=== PATIENT | male | born 1965 | race Caucasian/White ===

== ENCOUNTER → 2016-05-21 | Outpatient (CLI) | payer BC ==
[~2016-05-21] MED LIST: ASCO10003 PO; CYAN100020 PO; DICY10CA12 PO; GLUCTAB7 PO; LOSA100T26 PO; MISCCAP80 PO; NAPR1TAB9 PO; OMEG10007 PO; PANT40TA PO; PRAV20TA PO; VANC5CAP PO; VITAMIN B12 PO
[2016-05-21 17:49] LABS: BASO % 0.3 %; BASO ABS # 0.02 K/uL (0-0.2); COMPLETE YES; EOS % 0.7 %; IG% 0.1 %; LYMPH % 29.1 %; MEAN CORPUSCULAR HEMOGLOBIN 32.2 pg (25-34); MEAN CORPUSCULAR HGB CONC 34.7 g/dl (32-36); MEAN PLATELET VOLUME 11.4 fL (7.4-10.4); MONO % 8.5 %; NEUT % 61.3 %; PLATELET COUNT 219 K/uL (130-400); RED BLOOD COUNT 4.84 M/uL (4.7-6.1); WHITE BLOOD COUNT 7.21 K/uL (4.8-10.8)
[2016-05-21 17:55] LABS: URINE APPEARANCE CLEAR (CLEAR); URINE BILIRUBIN NEG (NEG); URINE COLOR YELLOW; URINE EPITHELIAL CELL AUTO 0-5 /lpf (0-5); URINE NITRITE NEG (NEG); URINE PH 6.5 (4.5-7.5); URINE SPECIFIC GRAVITY 1.009 (1.000-1.030); UROBILINOGEN NEG (NEG); ZZUR CULT IF INDIC CLEAN CATCH NO
[2016-05-21 18:06] LABS: MANUAL MICROSCOPIC REQUIRED? NO; REVIEW REQ? NO
[2016-05-21 18:14] LABS: ALT/SGPT 30 U/L (12-78); AMYLASE 46 U/L (25-115); AST/SGOT 11 U/L (15-37); BLOOD UREA NITROGEN 21 mg/dl (7-18); BUN/CREATININE RATIO 19.4 (10-20); CALCIUM 9.9 mg/dl (8.5-10.1); CARBON DIOXIDE 33 mmol/L (21-32); CHLORIDE 102 mmol/L (98-107); GLUCOSE 99 mg/dl (70-99); POTASSIUM 4.1 mmol/L (3.5-5.1); SODIUM 140 mmol/L (136-145)
[2016-05-21 18:17] LABS: ALB/GLOB RATIO 1.4 (0.9-2); ALKALINE PHOSPHATASE 46 U/L (45-117); C-REACTIVE PROTEIN < 0.29 mg/dl (0-0.29)
== END | disposition home or self-care (01) ==
LOC: C.LAB1850 17:18
PROVIDERS: ATTEND Internal Medicine
DX: R10.32 Left lower quadrant pain (principal)

== ENCOUNTER → 2016-06-07 | Day surgery (SDC) | payer BC ==
[2016-06-06 14:09] VITALS: BMI 35.0
[~2016-06-07] VITALS: Ht 177.8 cm; Wt 111.4 kg
[~2016-06-07] MED LIST changes: +LIDOCAINE HCL 2% 2 ML VIAL (20MG/ML) ONE; +PROPOFOL IV EMULSION 10 MG/ML 20 ML VIAL IV ONE; +SODIUM CHLORIDE 0.9% 500ML 500 ML IV ONE; -VANC5CAP PO; -VITAMIN B12 PO
[2016-06-07 10:59] VITALS: Ht 177.8 cm; Wt 111.4 kg
[2016-06-07 11:06] VITALS: TEMP 37
--- NOTE | 2016-06-07 12:08 | Endo History and Physical ---
History & Physical Date of Service: Jun 07, 2016. Chief Complaint: abd pain, diarrhea Referring Physician: Dr. Krueger History of Present Illness 50 yo CM who presents for Colonoscopy secondary to abdominal pain and diarrhea. Past Medical History Reflux, High Cholesterol, Hypertension Past Surgical History Hx Cardiac Surgery: No Hx Internal Defibrillator: No Hx Pacemaker: No Hx Abdominal Surgery: No Hx of Implantable Prosthesis: No Hx Post-Op Nausea and Vomiting: No Hx Cancer Surgery: No Hx Thoracic Surgery: No Hx Orthopedic: No Hx Urinary Tract Surgery: No Family History None Social History Smoking Status: Former Smoker Hx Substance Use: No Hx Alcohol Use: Yes (2-3 BEER DAILY) Allergies Coded Allergies: Atorvastatin (Verified Adverse Reaction, Unknown, myalgia, 06/06/16) Azithromycin (Verified Adverse Reaction, Unknown, nausea, diarrhea, ) Lisinopril (Verified Adverse Reaction, Unknown, cough, 06/06/16) Current Medications Reported Home Medications Medications Dose Route/Sig Max Daily Dose Days Date Category Dose Instructions Aleve (Naproxen) 220 Mg Tab 220 Mg PO DIRECTED PRN 06/06/16 Reported Probiotic (Probiotic Product) 1 Cap Cap 1 Cap PO QPM 06/06/16 Reported Vitamin C (Ascorbic Acid) 1,000 Mg Tab 1 Tab PO QPM 06/06/16 Reported Vitamin B12 (Cyanocobalamin) 1,000 Mcg Tab 1 Tab PO QPM 06/06/16 Reported Dicyclomine Hcl 10 Mg Cap 1 Cap PO BID 30 06/06/16 Reported [place]-3 (Fish Oil) 1 Ea Cap 1 Cap PO QPM 05/19/15 Reported Glucosamine Chondroitin (Zbcatsprmvj-Owxghhhmzqf-Ugb C-) 1 Tab Tab 1,500 Mg PO QPM 05/19/15 Reported Pravachol (Pravastatin Sodium) 20 Mg Tab 20 Mg PO QPM 05/19/15 Reported Protonix (Pantoprazole) 40 Mg Tab 40 Mg PO BID 05/19/15 Reported Losartan Potassium/Hydroc (Losartan Potassium & Hydrochlo) 1 Tab Tab 1 Tab PO QAM 30 05/19/15 Reported 100/25MG STRENGHT Vital Signs Weight (Kilograms): 111.36 Height (Feet): 5 Height (Inches): 10 Date Time Temp Pulse Resp B/P Pulse Ox O2 Delivery O2 Flow Rate FiO2 06/07/16 11:06 37 100 20 166/92 98 Room Air Physical Exam General Appearance: WD/WN, no apparent distress Respiratory/Chest: Auscultation: breath sounds normal Cardiovascular: Heart Auscultation: RRR Abdomen: Bowel Sounds: normal Inspection & Palpation: soft, non-distended, no tenderness, guarding & rebound Assessment and Plan Assessment: 50 yo CM who presents for Colonoscopy secondary to abdominal pain and diarrhea. Plan: Proceed with colonoscopy.
--- NOTE | 2016-06-07 12:52 | GI REPORT ---
Procedure Date: 06/07/2016 11:52 AM Procedure: Colonoscopy Indications: Generalized abdominal pain Medicines: Monitored Anesthesia Care Complications: No immediate complications. Estimated Blood Loss: Estimated blood loss: none. Procedure: Pre-Anesthesia Assessment: - Prior to the procedure, a History and Physical was performed, and patient medications and allergies were reviewed. The patient's tolerance of previous anesthesia was also reviewed. The risks and benefits of the procedure and the sedation options and risks were discussed with the patient. All questions were answered, and informed consent was obtained. Prior Anticoagulants: The patient has taken no previous anticoagulant or antiplatelet agents. ASA Grade Assessment: II - A patient with mild systemic disease. After reviewing the risks and benefits, the patient was deemed in satisfactory condition to undergo the procedure. After I obtained informed consent, the scope was passed under direct vision. Throughout the procedure, the patient's blood pressure, pulse, and oxygen saturations were monitored continuously. The On-site loaner was introduced through the anus and advanced to the terminal ileum. The colonoscopy was performed without difficulty. The patient tolerated the procedure well. The quality of the bowel preparation was good. The ileocecal valve, appendiceal orifice, and rectum were photographed. Findings: The terminal ileum contained a single (solitary) four mm ulcer. No bleeding was present. Biopsies were taken with a cold forceps for histology. Multiple random biopsies were obtained with cold forceps for histology in the entire colon. Non-bleeding internal hemorrhoids were found during retroflexion. The hemorrhoids were small. Impression: - A single (solitary) ulcer in the terminal ileum. Biopsied. - Non-bleeding internal hemorrhoids. - Multiple random biopsies were obtained in the entire colon. Recommendation: - Resume previous diet. - Continue present medications. - Repeat colonoscopy for surveillance based on pathology results. - Return to primary care physician as previously scheduled. Gagan Lemus DO 06/07/2016 12:51:32 PM This report has been signed electronically. Note Initiated On: 06/07/2016 11:52 AM I attest to the content of the Intraoperative Record and orders documented therein, exceptions below
--- NOTE | 2016-06-07 13:11 | Anesthesiology Progress Note ---
Anesthesia Post Op Note Date & Time Jun 07, 2016 at 13:12 Vital Signs Pain Intensity: 4 Vital Signs Past 12 Hours Date Time Temp Pulse Resp B/P Pulse Ox O2 Delivery O2 Flow Rate FiO2 06/07/16 13:04 78 18 142/83 97 Room Air 06/07/16 12:49 85 16 118/65 96 Room Air 06/07/16 11:06 37 100 20 166/92 98 Room Air Notes Mental Status: alert / awake / arousable, participated in evaluation Pt Amnestic to Procedure: Yes Nausea / Vomiting: adequately controlled Pain: adequately controlled Airway Patency, RR, SpO2: stable & adequate BP & HR: stable & adequate Hydration State: stable & adequate Anesthetic Complications: no major complications apparent
[2016-06-07 13:19] VITALS: BP 144/90; PULSE 63; O2SAT 97
--- NOTE | 2016-06-07 13:26 | Discharge Instructions ---
Endoscopy Patient Instructions Date / Procedure(s) Performed Jun 07, 2016. Colonoscopy Allergy Information Coded Allergies: Atorvastatin (Verified Adverse Reaction, Unknown, myalgia, 06/06/16) Azithromycin (Verified Adverse Reaction, Unknown, nausea, diarrhea, ) Lisinopril (Verified Adverse Reaction, Unknown, cough, 06/06/16) Discharge Date / Findings Jun 07, 2016. Terminal ileum ulcer s/p biopsies Random colon biopsies Internal hemorrhoids Provider Instructions Activity Restrictions - No exercising or heavy lifting for 24 hours. - Do not drink alcohol the day of the procedure. - Do not drive a car or operate machinery until the day after the procedure. - Do not make any important decisions or sign important papers in 24 hours after the procedure. Following Day: - Return to full activity which may include returning to work/school. Diet Start your diet with liquids and light foods (jello, soup, juice, toast). Then eat your usual diet if not nauseated. Treatment For Common After Affects For mild abdominal pain, bloating, or excessive gas: - Rest - Eat lightly - Lie on right side Follow-Up Information Follow-up with Dr. Krueger as scheduled Anesthesia Information What You Should Know You have had a procedure that required some medicine to reduce anxiety and discomfort. This treatment is called moderate sedation. After receiving the treatment, you may be sleepy, but you will be able to breathe on your own. The effects of the treatment may last for several hours. Follow these instructions along with Activity/Diet recommendations noted above: * Do NOT do anything where dizziness or clumsiness would be dangerous. * Rest quietly at home today, then you can be up and about tomorrow. * Have a responsible person stay with you the rest of today. * You may have had an I.V. today. If so, you may take the dressing off later today. Recommendations Call your doctor if: * Trouble breathing * Continuous vomiting for more than 24 hours * Temperature above 101 degrees * Severe abdominal pain or bloating * Pain not relieved by pain medicine ordered * There is increased drainage or redness from any incision * A large amount of rectal bleeding greater than 2-3 tablespoons. (If you had a polyp/s removed or have hemorrhoids, a small amount of blood - from the rectum is to be expected.) * You have any unanswered questions or concerns. IN THE EVENT OF A SERIOUS EMERGENCY, GO TO THE NEAREST EMERGENCY ROOM Your discharge instructions were prepared by provider Gagan Lemus. Patient Instructions Signature Page Gonzalo Real Patient (or Guardian) Signature/Date: I have read and understand the instructions given to me by my caregivers. Caregiver/RN/Doctor Signature/Date: The above-named patient and/or guardian has received patient instructions on this date. + Original Patient Signature Page (only) stays with chart. Please make copy for patient.
== END | disposition home or self-care (01) ==
LOC: C.GI 10:24
PROVIDERS: ATTEND Internal Medicine
DX: K52.9 Noninfective gastroenteritis and colitis, unspecified (principal); K64.8 Other hemorrhoids; K21.9 Gastro-esophageal reflux disease without esophagitis; E78.00 Pure hypercholesterolemia, unspecified; I10 Essential (primary) hypertension; Z87.891 Personal history of nicotine dependence

== ENCOUNTER → 2016-06-19 | Outpatient (CLI) | payer BC ==
[~2016-06-19] MED LIST changes: -LIDOCAINE HCL 2% 2 ML VIAL (20MG/ML) ONE; -PROPOFOL IV EMULSION 10 MG/ML 20 ML VIAL IV ONE; -SODIUM CHLORIDE 0.9% 500ML 500 ML IV ONE
--- NOTE | 2016-06-19 16:51 | DIAGNOSTIC IMAGING REPORT ---
L-SPINE MIN 4 VIEWS ROUTINE CLINICAL HISTORY: Chronic back pain. Left-sided abdominal pain. COMPARISON: MRI lumbar spine August 04, 2008. FINDINGS: Alignment of the lumbar spine is anatomic. Vertebral body heights are maintained. There is no fracture or suspicious lesion. There is mild multilevel disc space narrowing and osteophytosis. Sacroiliac joints are intact. Slight loss of height of several lower thoracic vertebral bodies is unchanged and likely degenerative. IMPRESSION: 1. No lumbar spine fracture or subluxation. 2. Mild multilevel degenerative disc disease and facet arthrosis of the lumbar spine. Electronically signed by: Lauro Montana M.D. 06/19/2016 4:50 PM Dictated Date/Time: 06/19/2016 4:48 PM
== END | disposition home or self-care (01) ==
LOC: C.RAD1850 16:30
PROVIDERS: ATTEND Internal Medicine
DX: M54.9 Dorsalgia, unspecified (principal); R10.9 Unspecified abdominal pain

== ENCOUNTER → 2016-07-05 | Day surgery (SDC) | payer BC ==
[2016-07-01 07:37] VITALS: Ht 177.8 cm; Wt 111.4 kg
[~2016-07-05] VITALS: Ht 177.8 cm; Wt 111.4 kg
[~2016-07-05] MED LIST changes: +LIDOCAINE HCL 2% 2 ML VIAL (20MG/ML) ONE; +PROPOFOL IV EMULSION 10 MG/ML 20 ML VIAL IV ONE; +SODIUM CHLORIDE 0.9% 500ML 500 ML IV ONE
--- NOTE | 2016-07-05 10:29 | Endo History and Physical ---
History & Physical Date of Service: Jul 05, 2016. Chief Complaint: left sided to mid abdominal pain Referring Physician: Dr. Meir Krueger History of Present Illness 50 yo CM who presents for EGD secondary to Left sided and mid-abdominal pain. Past Medical History Reflux, High Cholesterol, Hypertension Past Surgical History Hx Cardiac Surgery: No Hx Internal Defibrillator: No Hx Pacemaker: No Hx Abdominal Surgery: No Hx of Implantable Prosthesis: No Hx Post-Op Nausea and Vomiting: No Hx Cancer Surgery: No Hx Thoracic Surgery: No Hx Orthopedic: No Hx Urinary Tract Surgery: No Family History None Social History Smoking Status: Former Smoker Hx Substance Use: No Hx Alcohol Use: Yes (2-3 BEERS/DAY) Allergies Coded Allergies: Atorvastatin (Verified Adverse Reaction, Unknown, myalgia, 07/01/16) Azithromycin (Verified Adverse Reaction, Unknown, nausea, diarrhea, ) Lisinopril (Verified Adverse Reaction, Unknown, cough, 07/01/16) Current Medications Reported Home Medications Medications Dose Route/Sig Max Daily Dose Days Date Category Dose Instructions Aleve (Naproxen) 220 Mg Tab 220 Mg PO DIRECTED PRN 06/06/16 Reported Probiotic (Probiotic Product) 1 Cap Cap 1 Cap PO QPM 06/06/16 Reported Vitamin C (Ascorbic Acid) 1,000 Mg Tab 1 Tab PO QPM 06/06/16 Reported Vitamin B12 (Cyanocobalamin) 1,000 Mcg Tab 1 Tab PO QPM 06/06/16 Reported Dicyclomine Hcl 10 Mg Cap 1 Cap PO BID 06/06/16 Reported [place]-3 (Fish Oil) 1 Ea Cap 1 Cap PO QPM 05/19/15 Reported Glucosamine Chondroitin (Ljfgwpundir-Ylmuekdsgpk-Lvq C-) 1 Tab Tab 1,500 Mg PO QPM 05/19/15 Reported Pravachol (Pravastatin Sodium) 20 Mg Tab 20 Mg PO QPM 05/19/15 Reported Protonix (Pantoprazole) 40 Mg Tab 40 Mg PO BID 05/19/15 Reported Losartan Potassium/Hydroc (Losartan Potassium & Hydrochlo) 1 Tab Tab 1 Tab PO QAM 05/19/15 Reported 100/25MG STRENGHT Vital Signs Weight (Kilograms): 111.36 Height (Feet): 5 Height (Inches): 10 Date Time Temp Pulse Resp B/P Pulse Ox O2 Delivery O2 Flow Rate FiO2 3/17/17 09:45 37.1 82 20 150/83 97 Room Air Physical Exam General Appearance: WD/WN, no apparent distress Respiratory/Chest: Auscultation: breath sounds normal Cardiovascular: Heart Auscultation: RRR Abdomen: Bowel Sounds: normal Inspection & Palpation: soft, non-distended, no tenderness, guarding & rebound Assessment and Plan Assessment: 50 yo CM who presents for EGD secondary to Left sided and mid-abdominal pain. Plan: Proceed with EGD.
--- NOTE | 2016-07-05 11:12 | Discharge Instructions ---
Endoscopy Patient Instructions Date / Procedure(s) Performed Jul 05, 2016. EGD Allergy Information Coded Allergies: Atorvastatin (Verified Adverse Reaction, Unknown, myalgia, 07/01/16) Azithromycin (Verified Adverse Reaction, Unknown, nausea, diarrhea, ) Lisinopril (Verified Adverse Reaction, Unknown, cough, 07/01/16) Discharge Date / Findings Jul 05, 2016. Duodenal biopsies Gastric biopsies Provider Instructions Activity Restrictions - No exercising or heavy lifting for 24 hours. - Do not drink alcohol the day of the procedure. - Do not drive a car or operate machinery until the day after the procedure. - Do not make any important decisions or sign important papers in 24 hours after the procedure. Following Day: - Return to full activity which may include returning to work/school. Diet Start your diet with liquids and light foods (jello, soup, juice, toast). Then eat your usual diet if not nauseated. Treatment For Common After Affects For mild abdominal pain, bloating, or excessive gas: - Rest - Eat lightly - Lie on right side Follow-Up Information Follow-up with Dr. Meir Krueger as scheduled Anesthesia Information What You Should Know You have had a procedure that required some medicine to reduce anxiety and discomfort. This treatment is called moderate sedation. After receiving the treatment, you may be sleepy, but you will be able to breathe on your own. The effects of the treatment may last for several hours. Follow these instructions along with Activity/Diet recommendations noted above: * Do NOT do anything where dizziness or clumsiness would be dangerous. * Rest quietly at home today, then you can be up and about tomorrow. * Have a responsible person stay with you the rest of today. * You may have had an I.V. today. If so, you may take the dressing off later today. Recommendations Call your doctor if: * Trouble breathing * Continuous vomiting for more than 24 hours * Temperature above 101 degrees * Severe abdominal pain or bloating * Pain not relieved by pain medicine ordered * There is increased drainage or redness from any incision * A large amount of rectal bleeding greater than 2-3 tablespoons. (If you had a polyp/s removed or have hemorrhoids, a small amount of blood - from the rectum is to be expected.) * You have any unanswered questions or concerns. IN THE EVENT OF A SERIOUS EMERGENCY, GO TO THE NEAREST EMERGENCY ROOM Your discharge instructions were prepared by provider Gagan Lemus. Patient Instructions Signature Page Gonzalo Piersonw Patient (or Guardian) Signature/Date: I have read and understand the instructions given to me by my caregivers. Caregiver/RN/Doctor Signature/Date: The above-named patient and/or guardian has received patient instructions on this date. + Original Patient Signature Page (only) stays with chart. Please make copy for patient.
--- NOTE | 2016-07-05 11:22 | GI REPORT ---
Procedure Date: 07/05/2016 11:04 AM Procedure: Upper GI endoscopy Indications: Abdominal pain in the left lower quadrant Medicines: Monitored Anesthesia Care Complications: No immediate complications. Estimated Blood Loss: Estimated blood loss: none. Procedure: Pre-Anesthesia Assessment: - Prior to the procedure, a History and Physical was performed, and patient medications and allergies were reviewed. The patient's tolerance of previous anesthesia was also reviewed. The risks and benefits of the procedure and the sedation options and risks were discussed with the patient. All questions were answered, and informed consent was obtained. Prior Anticoagulants: The patient has taken no previous anticoagulant or antiplatelet agents. ASA Grade Assessment: II - A patient with mild systemic disease. After reviewing the risks and benefits, the patient was deemed in satisfactory condition to undergo the procedure. After obtaining informed consent, the endoscope was passed under direct vision. Throughout the procedure, the patient's blood pressure, pulse, and oxygen saturations were monitored continuously. The scope was introduced through the mouth, and advanced to the second part of duodenum. The upper GI endoscopy was accomplished without difficulty. The patient tolerated the procedure well. Findings: The esophagus was normal. The entire examined stomach was normal. Biopsies were taken with a cold forceps for Helicobacter pylori testing. The examined duodenum was normal. Biopsies for histology were taken with a cold forceps for evaluation of celiac disease. Impression: - Normal esophagus. - Normal stomach. Biopsied. - Normal examined duodenum. Biopsied. Recommendation: - Resume previous diet. - Continue present medications. - Await pathology results. - Return to primary care physician as previously scheduled. Gagan Lemus DO 07/05/2016 11:23:18 AM This report has been signed electronically. Note Initiated On: 07/05/2016 11:04 AM I attest to the content of the Intraoperative Record and orders documented therein, exceptions below
[2016-07-05 11:42] VITALS: BP 158/93; PULSE 73; O2SAT 98
--- NOTE | 2016-07-05 12:26 | Anesthesiology Progress Note ---
Anesthesia Post Op Note Date & Time Jul 05, 2016 at 12:25 Vital Signs Pain Intensity: 5 Vital Signs Past 12 Hours Date Time Temp Pulse Resp B/P Pulse Ox O2 Delivery O2 Flow Rate FiO2 07/05/16 11:42 73 18 158/93 98 Room Air 07/05/16 11:27 66 18 144/83 96 Room Air 07/05/16 11:12 72 18 135/80 95 Room Air 07/05/16 09:45 37.1 82 20 150/83 97 Room Air Notes Mental Status: alert / awake / arousable, participated in evaluation Pt Amnestic to Procedure: Yes Nausea / Vomiting: adequately controlled Pain: adequately controlled Airway Patency, RR, SpO2: stable & adequate BP & HR: stable & adequate Hydration State: stable & adequate Anesthetic Complications: no major complications apparent
== END | disposition home or self-care (01) ==
LOC: C.GI 09:27
PROVIDERS: ATTEND Internal Medicine
DX: R10.32 Left lower quadrant pain (principal); K21.9 Gastro-esophageal reflux disease without esophagitis; E78.00 Pure hypercholesterolemia, unspecified; I10 Essential (primary) hypertension; Z87.891 Personal history of nicotine dependence

== ENCOUNTER → 2016-08-07 | Outpatient (CLI) | payer BC ==
[~2016-08-07] MED LIST changes: -LIDOCAINE HCL 2% 2 ML VIAL (20MG/ML) ONE; -LOSA100T26 PO; +LOSA100T33 PO; -PROPOFOL IV EMULSION 10 MG/ML 20 ML VIAL IV ONE; -SODIUM CHLORIDE 0.9% 500ML 500 ML IV ONE
[2016-08-07 12:50] LABS: CHOLESTEROL/HDL RATIO 3.9
== END | disposition home or self-care (01) ==
LOC: C.LABBFT 10:11
PROVIDERS: ATTEND Internal Medicine
DX: E78.5 Hyperlipidemia, unspecified (principal)

== ENCOUNTER → 2016-09-04 | Outpatient (CLI) | payer BC ==
[2016-09-11 13:00] LABS: O&P SOURCE OTHER-STOOL
== END | disposition home or self-care (01) ==
LOC: C.LABSPEC 12:28
PROVIDERS: ATTEND Physician Assistant Medical
DX: R19.7 Diarrhea, unspecified (principal)

== ENCOUNTER → 2016-11-11 | Outpatient (CLI) | payer BC ==
[~2016-11-11] MED LIST changes: +LOSA100T26 PO; -LOSA100T33 PO
--- NOTE | 2016-12-12 08:44 | CODING QUERY MEDICAL NECESSITY ---
SUPPORTING DIAGNOSIS NEEDED Dr. Donovan, A supporting diagnosis is required for the test/procedure performed on this patient in order for us to be reimbursed by the patient's insurance. Please provide a supporting diagnosis for the following test/procedure listed below next to the test name along with your signature. *If there is no additional diagnosis for this patient that would support the following test/procedure please document that below next to the test/procedure. Test(s)/Procedure(s) that require a supporting diagnosis: * ([id number]) DXA BONE DENSITY, AXIAL DIAGNOSIS: DATE OF SERVICE: 11/11/16 Provider Signature: Date: Thank you Gregory Mohan [facility] Information Management Once completed, please kindly fax back to [phone] For questions please call [phone]
== END | disposition home or self-care (01) ==
LOC: C.MAMM 07:41
PROVIDERS: ATTEND Internal Medicine Gastroenterology
DX: K50.00 Crohn's disease of small intestine without complications (principal); R10.9 Unspecified abdominal pain; M85.80 Other specified disorders of bone density and structure, unspecified site; Z68.34 Body mass index [BMI] 34.0-34.9, adult

== ENCOUNTER → 2017-05-09 | Outpatient (CLI) | payer BC ==
[~2017-05-09] MED LIST changes: -LOSA100T26 PO; +LOSA100T33 PO
[2017-05-09 12:45] LABS: HEMOGLOBIN A1C 5.1 % (4.5-5.6)
[2017-05-09 12:59] LABS: ALBUMIN 3.8 gm/dl (3.4-5.0); ALT/SGPT 23 U/L (12-78); AST/SGOT 14 U/L (15-37); BLOOD UREA NITROGEN 17 mg/dl (7-18); CALCIUM 9.1 mg/dl (8.5-10.1); CARBON DIOXIDE 33 mmol/L (21-32); CREATININE 1.13 mg/dl (0.60-1.40); GLUCOSE 96 mg/dl (70-99); POTASSIUM 3.9 mmol/L (3.5-5.1); SODIUM 138 mmol/L (136-145)
[2017-05-09 13:16] LABS: ALKALINE PHOSPHATASE 40 U/L (45-117)
== END | disposition home or self-care (01) ==
LOC: C.LABBFT 07:04
PROVIDERS: ATTEND Internal Medicine
DX: R73.03 Prediabetes (principal); M25.50 Pain in unspecified joint